=== PATIENT | male | born 1990 | race Caucasian/White ===

== ENCOUNTER 2023-03-17 06:33 | Emergency (ER) | payer SELFPAY ==
[2023-03-17] VITALS (19 sets, daily range): BP systolic 140–180; BP diastolic 97–112; PULSE 58–80; RESP 12–19; TEMP 36.7; O2SAT 95–99; BMI 26.1
--- NOTE | 2023-03-17 06:48 | XR_ITS ---
[address] [address] Patient Name: NANCY HAYNES MRN: [id number] date: 1990 Sex: M Assigned Patient Location: ER Current Patient Location: ED.MAIN Accession/Order Number: [id number] Exam Date: 03/17/2023 06:50 Report Date: 03/17/2023 09:23 At the request of: PATTI ESCALANTE Procedure: XR chest 1V SINGLE VIEW CHEST X-RAY, 03/17/2023. HISTORY: Chest pain. COMPARISON: None. FINDINGS: Single view of the chest was obtained. Heart size and mediastinal contours normal. No pleural effusion. No airspace consolidation. No pulmonary edema. No pneumothorax. XR/XR chest 1V IMPRESSION: Lungs are clear. No acute findings. Electronically authenticated by: RAEANN MCGILL Date: 03/17/2023 09:23
--- NOTE | 2023-03-17 06:48 | ECG_ITS ---
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
[2023-03-17] MEDS: ASPIRIN 325 MG TABLET PO (07:00)
[2023-03-17] MEDS: NITROGLYCERIN 0.4 MG TAB.SUBL PO (07:00)
--- NOTE | 2023-03-17 07:28 | ED_ITS ---
HPI - Chest Pain General Chief Complaint: Chest Pain Stated Complaint: chest pain Time Seen by Provider: 03/17/23 06:48 Source: patient Mode of arrival: walk-in Limitations: no limitations History of Present Illness HPI narrative: The patient have no known past medical history except for hypertension, presenting to us with an episode of chest pain left-sided associated with tachycardia and left-sided jaw pain that woke him up at 3 AM from sleep, by the time the patient got to the ER the patient had no more chest pain but he still have jaw pain he mentioned that he had no nausea no vomiting with the symptoms , some dizziness as he has to take his time to be able to get up He mentioned that he is active usually and use stairs multiple days during the week and no difficulty breathing or chest pain at any time with any used The patient mentioned that the chest pain with pressure-like with no radiation except for the jaw on the left side. No previous medical history of similar problem and no known family history of coronary artery disease The patient also had a history of smoking cigarettes less than 1 pack/day Related Data Home Medications Medication Instructions Recorded Confirmed lisinopril 20 1 tab PO DAILY 03/17/23 03/17/23 mg-hydrochlorothiazide 12.5 mg tablet Allergies Allergy/AdvReac Type Severity Reaction Status Date / Time No Known Drug Allergies Allergy Verified 03/17/23 06:40 Review of Systems ROS Status of ROS 10 or more systems reviewed and unremarkable except as noted in history and below [facility] Social History Smoking status: Current every day smoker Exam Narrative Exam Narrative: Nurses notes and vital signs reviewed and patient is not hypoxic. General: Well-appearing and in no apparent distress. Skin: Warm, dry, no pallor noted. No rash. Head: Normocephalic, atraumatic. Neck: Supple, non-tender. Eye: Pupils are equal, round and EOMI. No scleral icterus. Ears, Nose, Mouth, and Throat: TM are clear, no nasal mucosal hypertrophy. Oral mucosa is moist, no posterior oropharynx erythema, uvula is mid-line Cardiovascular: Regular Rate and Rhythm without murmur, gallop or rub. The patient did mention that he have some tenderness on the left side of his jaw Respiratory: No accessory muscle use or respiratory distress. Lungs are clear to auscultation, no wheezing, rales or rhonchi Chest Wall: no tenderness Back: No midline thoracic or lumbar vertebral tenderness. No CVA tenderness Musculoskeletal: normal ROM, no calf or popliteal tenderness, no lower extremity edema/swelling GI: Abdomen is soft, non-distended. Normal bowel sounds. No masses appreciated. No tenderness to palpation. No rebound, guarding, or rigidity noted. Neurological: A&O x4. No cranial nerve dysfunction observed. No truncal ataxia. Moves all extremities. Sensation intact. Psychiatric: Cooperative and interactive. Normal mood and affect. Constitutional Vital Signs, click to edit/add: Last Vital Signs Temp 98.0 F 03/17/23 06:35 Pulse 58 L 03/17/23 09:07 Resp 16 03/17/23 09:07 BP 150/100 H 03/17/23 09:07 Pulse Ox 99 03/17/23 09:07 O2 Del Method Room Air 03/17/23 09:07 Course Vital Signs Vital signs: Vital Signs Temperature 98.0 F 03/17/23 06:35 Pulse Rate 68 03/17/23 06:35 Respiratory Rate 18 03/17/23 06:35 Blood Pressure 170/112 H 03/17/23 06:35 Pulse Oximetry 98 03/17/23 06:35 Oxygen Delivery Method Room Air 03/17/23 06:35 Temperature 98.0 F 03/17/23 06:35 Pulse Rate 58 L 03/17/23 09:07 Respiratory Rate 16 03/17/23 09:07 Blood Pressure 150/100 H 03/17/23 09:07 Pulse Oximetry 99 03/17/23 09:07 Oxygen Delivery Method Room Air 03/17/23 09:07 MDM - Chest Pain MDM Narrative Medical decision making narrative: The patient EKG showed sinus rhythm from presentation at heart rate of [address] elevation or depression it was repeated after he had the nitro and again showing the same result 61 sinus rhythm with no ST elevation or depression The patient is a low risk patient with a only risk factor is smoking cigarette, his presentation is atypical he already had no chest pain upon presentation he mentioned that his jaw pain disappeared after the nitro and he did have some headache and he was provided with Toradol He had no chest pain at any time when he was in the ER The patient CBC chemistry as well as troponin repeated twice showed no acute significant pathology The patient was instructed about the importance of managing hypertension and make sure that he takes his medication he also referred to cardiology as outpatient for stress test due to his presentation The patient was instructed to come back in case of any symptoms or concerns right now with the patient risk factors presentation to Atypical reason for pain The patient is to follow up with primary care physician in next 2-3 days or to return to the emergency department should any of the signs or symptoms worsen or new symptoms develop. The patient agrees with the following Diagnosis and Treatment plan and the patient will be discharged home. Lab Data Labs: Lab Results 03/17/23 03/17/23 Range/Units 07:17 09:05 WBC 6.5 (4.0-11.0) 10^3/uL RBC 5.44 (4.70-6.10) 10^6/uL Hgb 16.4 (14.0-18.0) g/dL Hct 47.9 (42.0-54.0) % MCV 88.1 (80.0-94.0) fL MCH 30.1 (25.9-34.0) pg MCHC 34.2 (29.9-35.2) g/dL RDW 11.7 (11.0-15.0) % Plt Count 217 (150-450) 10^3/uL MPV 10.5 (9.5-13.5) fL Neut % (Auto) 62.5 (43.0-75.0) % Lymph % (Auto) 26.9 (20.5-60.0) % [place] % (Auto) 6.8 (1.7-12.0) % Eos % (Auto) 2.5 (0.9-7.0) % Baso % (Auto) 0.8 (0.2-2.0) % Neut # (Auto) 4.0 (1.4-6.5) 10^3/uL Lymph # (Auto) 1.7 (1.2-3.8) 10^3/uL [place] # (Auto) 0.4 (0.3-0.8) 10^3/uL Eos # (Auto) 0.2 (0.0-0.7) 10^3/uL Baso # (Auto) 0.1 (0.0-0.1) 10^3/uL Abs Immat Gran (auto) 0.03 (0.00-0.03) 10^3/uL Imm/Tot Granulo (auto) 0.5 (0.0-0.5) % PT 10.3 (9.0-11.6) sec INR 0.97 APTT 28.2 (22.3-36.2) sec Sodium 139 (136-145) mmol/L Potassium 3.7 (3.5-5.1) mmol/L Chloride 103 (98-107) mmol/L Carbon Dioxide 26.2 (21.0-32.0) mmol/L Anion Gap 13.5 BUN 15.0 (7.0-18.0) mg/dL Creatinine 0.86 (0.70-1.30) mg/dL Est GFR ( Amer) >60 (>=60) Est GFR (Non-Af Amer) >60 (>=60) BUN/Creatinine Ratio 17.4 Glucose 118 H (74-106) mg/dL Calcium 9.1 (8.5-10.1) mg/dL Total Bilirubin 1.0 (0.2-1.0) mg/dL AST 19 (15-37) U/L ALT 38 (16-63) U/L Alkaline Phosphatase 62 (46-116) U/L Troponin I High Sens 4.1 4.4 (4.0-76.1) pg/mL Total Protein 7.2 (6.4-8.2) g/dL Albumin 4.0 (3.4-5.0) g/dL Globulin 3.2 g/dL Albumin/Globulin Ratio 1.3 Urine Opiates Screen Negative (NEGATIVE) Ur Buprenorphine Scrn Negative (NEGATIVE) Ur Oxycodone Screen Negative (NEGATIVE) Urine Methadone Screen Negative (NEGATIVE) Ur Propoxyphene Screen Negative (NEGATIVE) Ur Barbiturates Screen Negative (NEGATIVE) U Tricyclic Antidepress Negative (NEGATIVE) Ur Phencyclidine Scrn Negative (NEGATIVE) Ur Amphetamines Screen Negative (NEGATIVE) U Methamphetamines Scrn Negative (NEGATIVE) U Benzodiazepines Scrn Negative (NEGATIVE) Urine Cocaine Screen Negative (NEGATIVE) U Cannabinoids Screen Positive A (NEGATIVE) Discharge Plan Discharge Chief Complaint: Chest Pain Clinical Impression: Atypical chest pain, Jaw pain Patient Disposition: Home, Self-Care Time of Disposition Decision: 10:00 Prescriptions / Home Meds: No Action lisinopril-hydrochlorothiazide 20-12.5 mg tablet 1 tab PO DAILY Instructions: Chest Pain (ED) Stand Alone Forms: Portal Instructions Referrals: Physician,Non-Staff, [Primary Care Provider] - 1 week Ky Billingsley MD [Physician] - 1 week
--- NOTE | 2023-03-17 07:30 | ECG_ITS ---
The [facility] Test Date: 2023-03-17 Pat Name: NANCY HAYNES Department: Room: - Gender: Male Hr Manager: : 1990 Requested By: [id number] Order Number: [id number] Reading MD: ANGEL SMITH Measurements Intervals [place] Rate: 61 P: 34 [place]: 176 QRS: 110 QRSD: 92 T: 71 QT: 424 QTc: 426 Interpretive Statements 1100 Sinus rhythm [address] segment limited to III w/ inverted T wave AVL, V1-2, which are nonspecific but myocardial ischemia can't be excluded 9120 atypical ECG Compared to ECG 03/17/2023 06:38:23 Sinus arrhythmia no longer present Electronically Signed On 03-18-2023 7:05:43 EDT by ANGEL SMITH
[2023-03-17 07:31] LABS: Basophils Absolute Auto 0.1 10^3/uL (0.0-0.1); Basophils Percent Auto 0.8 % (0.2-2.0); Eosinophils Absolute Auto 0.2 10^3/uL (0.0-0.7); Eosinophils Percent Auto 2.5 % (0.9-7.0); Hematocrit 47.9 % (42.0-54.0); Hemoglobin 16.4 g/dL (14.0-18.0); Immature Granulocytes Abs Auto 0.03 10^3/uL (0.00-0.03); Immature Granulocytes Pct Auto 0.5 % (0.0-0.5); Lymphocytes Absolute Auto 1.7 10^3/uL (1.2-3.8); Lymphocytes Percent Auto 26.9 % (20.5-60.0); Mean Corpuscular HGB Conc 34.2 g/dL (29.9-35.2); Mean Corpuscular Hemoglobin 30.1 pg (25.9-34.0); Mean Corpuscular Volume 88.1 fL (80.0-94.0); Mean Platelet Volume 10.5 fL (9.5-13.5); Monocytes Absolute Auto 0.4 10^3/uL (0.3-0.8); Monocytes Percent Auto 6.8 % (1.7-12.0); Neutrophils Percent Auto 62.5 % (43.0-75.0); Platelet Count 217 10^3/uL (150-450); Red Blood Count 5.44 10^6/uL (4.70-6.10); Red Cell Distribution Width 11.7 % (11.0-15.0); White Blood Count 6.5 10^3/uL (4.0-11.0)
[2023-03-17] MEDS: KETOROLAC TROMETHAMINE 30 MG/ML VIAL 15 MG IVP (07:35)
[2023-03-17 07:43] LABS: Alanine Aminotransferase 38 U/L (16-63); Albumin Globulin Ratio 1.3; Alkaline Phosphatase 62 U/L (46-116); Anion Gap 13.5; Aspartate Amino Transferase 19 U/L (15-37); BUN Creatinine Ratio 17.4; Calcium 9.1 mg/dL (8.5-10.1); Carbon Dioxide 26.2 mmol/L (21.0-32.0); Chloride 103 mmol/L (98-107); Estimated GFR (African America >60 (>=60); Estimated GFR (Non-African Ame >60 (>=60); Globulin 3.2 g/dL; Glucose 118 mg/dL (74-106); INR 0.97; Partial Thromboplastin Time 28.2 sec (22.3-36.2); Potassium 3.7 mmol/L (3.5-5.1); Prothrombin Time 10.3 sec (9.0-11.6); Sodium 139 mmol/L (136-145); Total Protein 7.2 g/dL (6.4-8.2); Troponin I High Sensitivity 4.1 pg/mL (4.0-76.1)
[2023-03-17 09:29] LABS: Amphetamine Screen Urine NEGATIVE (NEGATIVE); Barbiturates Screen Urine NEGATIVE (NEGATIVE); Benzodiazepines Screen Urine NEGATIVE (NEGATIVE); Buprenorphine Screen Urine NEGATIVE (NEGATIVE); Cannabinoid Screen Urine POSITIVE (NEGATIVE); Cocaine Screen Urine NEGATIVE (NEGATIVE); Methadone Screen Urine NEGATIVE (NEGATIVE); Methamphetamines Screen Urine NEGATIVE (NEGATIVE); Opiate Screen Urine NEGATIVE (NEGATIVE); Oxycodone Screen Urine NEGATIVE (NEGATIVE); Phencyclidine Screen Urine NEGATIVE (NEGATIVE); Tricyclic Antidepressant Urine NEGATIVE (NEGATIVE)
[2023-03-17 09:46] LABS: Troponin I High Sensitivity 4.4 pg/mL (4.0-76.1)
== END 2023-03-17 10:10 | disposition home or self-care (01) ==
PROVIDERS: Emergency Medicine; Emergency Provider Emergency Medicine
DX: R07.89 Other chest pain (principal); R68.84 Jaw pain; I10 Essential (primary) hypertension; F17.210 Nicotine dependence, cigarettes, uncomplicated
CPT/HCPCS: 36415; 71045; 80053; 80307; 84484; 85025; 85610; 85730; 93005; 96374; 99285

== ENCOUNTER 2023-10-06 22:54 | Emergency (ER) | payer SELFPAY ==
[2023-10-06] VITALS (8 sets, daily range): BP systolic 191–220; BP diastolic 112–134; PULSE 80–92; RESP 17–23; TEMP 36.6; O2SAT 99; BMI 26.5
--- NOTE | 2023-10-06 23:10 | ECG_ITS ---
The 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
--- NOTE | 2023-10-06 23:20 | ED_ITS ---
HPI - Abdominal Pain General Chief Complaint: Abdominal Pain Stated Complaint: Abdominal Pain Time Seen by Provider: 10/06/23 23:03 Source: patient Mode of arrival: walk-in Limitations: no limitations History of Present Illness HPI narrative: This 32-year-old male with a history of hypertension who is on lisinopril presents for evaluation of one day of nausea, vomiting and right lower quadrant abdominal pain. The patient states that earlier today he ate some pizza and he thought that the pizza made him sick because he became nauseated and had several episodes of vomiting since that time. He has since developed right lower quadrant abdominal pain. There is no right upper quadrant eft upper quadrant or left lower quadrant abdominal pain. He has not had any diarrhea. He states that he had severe nausea and increased pain while driving to the emergency department. He has not documented a fever but has had chills and felt flushed throughout the day today. He has never had any abdominal surgery. He states he did not take his blood pressure medication earlier today because he was feeling too sick. MD elicited complaint: Reports abdominal pain Related Data Home Medications ?Medication ?Instructions ?Recorded ?Confirmed lisinopril 20 1 tab PO DAILY 03/17/23 03/17/23 mg-hydrochlorothiazide 12.5 mg tablet Allergies Allergy/AdvReac Type Severity Reaction Status Date / Time No Known Drug Allergies Allergy Verified 03/17/23 06:40 Review of Systems ROS Status of ROS 10 or more systems reviewed and unremark able except as noted in history and below [facility] Social History Smoking status: Current every day smoker Exam Narrative Exam Narrative: Nurses note and vital signs reviewed and patient is not hypoxic. Blood presssure is markedly elevated at 220/112 General: Nontoxic but uncomfortable appearing adult male, no respiratory distress, no active vomiting Skin: Warm, dry, no pallor noted. There is no rash noted. Head: Normocephalic, atraumatic Eye: Normal conjunctiva, no drainage, EOMI. PERRL. No scleral icterus. Ears, Nose, Mouth, and Throat: oral mucosa is moist. Cardiovascular: Regular Rate and Rhythm S1S2, pulses are brisk and equal bilaterally Respiratory: Patient is in no distress, no accessory muscle use, lungs are clear to auscultation, no wheezing, rales or rhonchi Back: non-tender, no CVA tenderness bilaterally to percussion. GI: Normal bowel sounds, soft with RLQ tenderness and rebound, negative Rovsing sign, negative heel tap and obturator sign Musculoskeletal: The patient has no evidence of calf tenderness, no pitting edema, symmetrical pulses noted bilaterally Neurological: A&O x4, normal speech Psychiatric: Cooperative, anxious Constitutional Vital Signs, click to edit/add: Last Vital Signs Temp 97.8 F 10/06/23 22:59 Pulse 75 10/07/23 01:43 Resp 18 10/07/23 01:43 BP 147/104 H 10/07/23 02:25 Pulse Ox 99 10/06/23 22:59 Course Vital Signs Vital signs: Vital Signs Temperature 97.8 F 10/06/23 22:59 Pulse Rate 81 10/06/23 22:59 Respiratory Rate 18 10/06/23 22:59 Blood Pressure 220/112 H 10/06/23 22:59 Pulse Oximetry 99 10/06/23 22:59 Temperature 97.8 F 10/06/23 22:59 Pulse Rate 75 10/07/23 01:43 Respiratory Rate 18 10/07/23 01:43 Blood Pressure 147/104 H 10/07/23 02:25 Pulse Oximetry 99 10/06/23 22:59 MDM - Abdominal Pain MDM Narrative Medical decision making narrative: 32-year-old male with no significant medical history presents for evaluation of one day of nausea, vomiting and right lower quadrant abdominal pain. The symptoms started after having pizza earlier in the day. He also had some chicken noodle soup. He was unable to take his blood pressure medication due to the nausea and vomiting earlier today. Arrival he was noted to have a markedly elevated blood pressure. He was nauseat ed and stated that came more nauseated on the way to the hospital in his abdomen hurt worse after getting here. He was tender in the right lower quadrant with a negative Rovsing sign, negative obturator sign. An IV was placed and he was medicated with IV fluids, 1 mg of Dilaudid and 4 mg of IV Zofran. This initially helped his pain. His blood pressure came down slightly with this medication but he was then medicated with a dose of IV labetalol. he typically takes Lisinopril during the day. Routine labs are ordered and are reviewed. He has an elevated white count of 14.6. Electrolytes are normal with the exception of a mildly low potassium at 3.0.. Lactic acid is minimally elevated at 2.2. Lipase is normal and liver function tests are normal. CT scan of the abdomen and pelvis which is included in the body of this report was negative for acute findings including acute appendicitis. He had mild return of his pain and was remedicated with a dose of Bentyl and Toradol. He is feeling much better, more talkative and appears comfortable. I discussed the results of the labs and CT with him and although at this time his CT scan is negative for acute appendicitis he was encouraged to return to the emergency department for ongoing or worsening symptoms, anorexia, fevers chills or any concerns. I did also explain to him that he may end up with diarrhea as this may be about of acute gastroenteritis with abdominal cramping causing his pain. He will be discharged home with an Rx for zofran and bentyl Medical Records Medical records narrative: The [address] [address] [address] Scan Report Signed Patient: NANCY HAYNES MR#: [id number] : 1990 Acct:[id number] Age/Sex: 32 / M ADM Date: 10/06/23 Loc: ER Attending Dr: Ordering Physician: Paty Fuentes Date of Service: 10/06/23 Procedure(s): CT abdomen pelvis w con Accession Number(s): [id number] cc: Physician,Non-Staff M.D.~ The [address] [address] Patient Name: NANCY HAYNES MRN: [facility]:[id number] date: 1990 Sex: M Assigned Patient Location: ER Current Patient Location: ER Accession/Order Number: [id number] Exam Date: 10/06/2023 23:59 Report Date: 10/07/2023 01:00 At the request of: PATY FUENTES Procedure: CT abdomen pelvis w con EXAM: CT abdomen pelvis w con HISTORY: LLQ abd pain lower quadrant abdominal pain COMPARISON: None. TECHNIQUE: IV contrast-enhanced CT imaging of the chest, abdomen, and pelvis. This CT exam was performed using one or more of the following dose reduction techniques: Automated exposure control, adjustment of the mA and/or KV according to patient size, or use of iterative reconstruction technique. Unless otherwise stated, incidental findings do not require dedicated follow-up imaging. FINDINGS: There is mild bibasilar atelectasis. The heart size is normal. The liver, spleen, pancreas, adrenal glands, and kidneys all enhance normally. There is a right upper pole renal cyst. The gallbladder is distended. There is no biliary duct dilatation. The bowel is unobstructed. The appendix is normal. The bladder is distended and within normal limits. There is no free fluid or free air within the abdomen or pelvis. The bones are intact without acute abnormality. CT/CT abdomen pelvis w con IMPRESSION: No acute abnormality of the abdomen or pelvis. Electronically authenticated by: NORAH LAWRENCE Date: 10/07/2023 01:00 Lab Data Labs: Lab Results 10/06/23 10/06/23 10/07/23 Range/Units 23:05 23:10 02:15 WBC 14.6 H (4.0-11.0) 10^3/uL RBC 5.62 (4.70-6.10) 10^6/uL Hgb 17.0 (14.0-18.0) g/dL Hct 50.2 (42.0-54.0) % MCV 89.3 (80.0-94.0) fL MCH 30.2 (25.9-34.0) pg MCHC 33.9 (29.9-35.2) g/dL RDW 11.5 (11.0-15.0) % Plt Count 242 (150-450) 10^3/uL MPV 10.7 (9.5-13.5) fL Neut % (Auto) 68.9 (43.0-75.0) % Lymph % (Auto) 21.2 (20.5-60.0) % [place] % (Auto) 7.9 (1.7-12.0) % Eos % (Auto) 1.0 (0.9-7.0) % Baso % (Auto) 0.7 (0.2-2.0) % Neut # (Auto) 10.0 H (1.4-6.5) 10^3/uL Lymph # (Auto) 3.1 (1.2-3.8) 10^3/uL [place] # (Auto) 1.2 H (0.3-0.8) 10^3/uL Eos # (Auto) 0.2 (0.0-0.7) 10^3/uL Baso # (Auto) 0.1 (0.0-0.1) 10^3/uL Abs Immat Gran (auto) 0.05 H (0.00-0.03) 10^3/uL Imm/Tot Granulo (auto) 0.3 (0.0-0.5) % Sodium 136 (136-145) mmol/L Potassium 3.0 L (3.5-5.1) mmol/L Chloride 98 (98-107) mmol/L Carbon Dioxide 27.9 (21.0-32.0) mmol/L Anion Gap 13.1 BUN 12.0 (7.0-18.0) mg/dL Creatinine 1.16 (0.70-1.30) mg/dL Est GFR ( Amer) >60 (>=60) Est GFR (Non-Af Amer) >60 (>=60) BUN/Creatinine Ratio 10.3 Glucose 117 H (74-106) mg/dL Lactate 2.2 H* 1.8 (0.4-2.0) mmol/L Calcium 9.6 (8.5-10.1) mg/dL Total Bilirubin 1.0 (0.2-1.0) mg/dL AST 19 (15-37) U/L ALT 38 (16-63) U/L Alkaline Phosphatase 71 (46-116) U/L Total Protein 7.7 (6.4-8.2) g/dL Albumin 4.4 (3.4-5.0) g/dL Globulin 3.3 g/dL Albumin/Globulin Ratio 1.3 Lipase 35.0 (16.0-77.0) U/L Urine Color Lt. yellow (YELLOW) Urine Clarity Clear (CLEAR) Urine pH 7.5 (5.0-9.0) Ur Specific [place] 1.015 (1.005-1.025) Urine Protein Negative (NEG/TRACE) mg/dL Urine Glucose (UA) Negative (NEGATIVE) mg/dL Urine Ketones Negative (NEGATIVE) mg/dL Urine Occult Blood Negative (NEGATIVE) Urine Nitrite Negative (NEGATIVE) Urine Bilirubin Negative (NEGATIVE) Urine Urobilinogen 0.2 (0.2-1.0) EU/dL Ur Leukocyte Esterase Negative (NEGATIVE) Urine RBC None seen (0-2) #/HPF Urine WBC None seen (NONE SEEN) #/HPF Ur Squamous Epith Cells None seen (NONE/RARE) #/LPF Urine Crystals None seen (None Seen) #/HPF Amorphous Sediment Many Urine Bacteria None seen (NONE SEEN) #/HPF Urine Casts None seen (NONE SEEN) #/LPF Urine Mucus None seen (NONE SEEN) Ur Culture Indicated? No Discharge Plan Discharge Stand Alone Forms: Portal Instructions Chief Complaint: Abdominal Pain Clinical Impression: Abdominal pain, RLQ, Elevated blood pressure reading, Nausea & vomiting Patient Disposition: Home, Self-Care Time of Disposition Decision: 02:04 Condition: Good Prescriptions / Home Meds: No Action lisinopril-hydrochlorothiazide 20-12.5 mg tablet 1 tab PO DAILY Print Language: Albanian Instructions: Acute Nausea and Vomiting (DC), Acute Abdominal Pain (ED), Hypertension (ED) Additional Instructions: Return to the emergency department for ongoing or worsening right lower quadrant abdominal pain, anorexia, fever or any concerns. Drink a clear liquid diet, use Zofran for nausea vomiting and Bentyl for abdominal cramps. You may end up having some diarrhea over the course of the next several days. Referrals: Physician,Non-Staff, MD [Primary Care Provider] - 1 week Discharge Date/Time: 10/07/23 02:27
[2023-10-06 23:27] LABS: Bilirubin Urine NEGATIVE (NEGATIVE); Blood Urine NEGATIVE (NEGATIVE); Clarity Urine CLEAR (CLEAR); Color Urine LT. YELLOW (YELLOW); Glucose Urine UA NEGATIVE (NEGATIVE); Ketones Urine NEGATIVE (NEGATIVE); Leukocyte Esterase Urine NEGATIVE (NEGATIVE); Nitrite Urine NEGATIVE (NEGATIVE); Protein Urine NEGATIVE (NEG/TRACE); Specific Gravity Urine 1.015 (1.005-1.025); Urobilinogen Urine 0.2 EU/dL (0.2-1.0); pH Urine 7.5 (5.0-9.0)
[2023-10-06 23:28] LABS: Basophils Absolute Auto 0.1 10^3/uL (0.0-0.1); Basophils Percent Auto 0.7 % (0.2-2.0); Eosinophils Absolute Auto 0.2 10^3/uL (0.0-0.7); Hematocrit 50.2 % (42.0-54.0); Immature Granulocytes Abs Auto 0.05 10^3/uL (0.00-0.03); Immature Granulocytes Pct Auto 0.3 % (0.0-0.5); Lymphocytes Absolute Auto 3.1 10^3/uL (1.2-3.8); Lymphocytes Percent Auto 21.2 % (20.5-60.0); Mean Corpuscular HGB Conc 33.9 g/dL (29.9-35.2); Mean Corpuscular Hemoglobin 30.2 pg (25.9-34.0); Mean Corpuscular Volume 89.3 fL (80.0-94.0); Mean Platelet Volume 10.7 fL (9.5-13.5); Monocytes Absolute Auto 1.2 10^3/uL (0.3-0.8); Monocytes Percent Auto 7.9 % (1.7-12.0); Neutrophils Percent Auto 68.9 % (43.0-75.0); Platelet Count 242 10^3/uL (150-450); Red Blood Count 5.62 10^6/uL (4.70-6.10); Red Cell Distribution Width 11.5 % (11.0-15.0); White Blood Count 14.6 10^3/uL (4.0-11.0)
[2023-10-06 23:33] LABS: Bacteria Urine NONE SEEN #/HPF (NONE SEEN); Mucus Urine NONE SEEN (NONE SEEN); RBC Urine NONE SEEN #/HPF (0-2); WBC Urine NONE SEEN #/HPF (NONE SEEN)
[2023-10-06 23:34] LABS: Amorphous Sediment Urine MANY; Cast Seen? NONE SEEN #/LPF (NONE SEEN); Crystals Seen? None Seen #/HPF (None Seen); Squamous Epithelial Cell Urine NONE SEEN #/LPF (NONE/RARE); Urine Culture Indicated NO
[2023-10-06] MEDS: ONDANSETRON PF 4 MG/2 ML VIAL IV (23:36)
[2023-10-06] MEDS: 0.9 % SODIUM CHLORIDE 1,000 ML 1000 ML IV (23:36)
[2023-10-06] MEDS: HYDROMORPHONE HCL 1 MG/ML CARTRIDGE IV (23:36)
[2023-10-06 23:49] LABS: Lactate/Lactic Acid 2.2 mmol/L (0.4-2.0)
[2023-10-06 23:57] LABS: Alanine Aminotransferase 38 U/L (16-63); Albumin Globulin Ratio 1.3; Albumin Level 4.4 g/dL (3.4-5.0); Alkaline Phosphatase 71 U/L (46-116); Anion Gap 13.1; Aspartate Amino Transferase 19 U/L (15-37); BUN Creatinine Ratio 10.3; Calcium 9.6 mg/dL (8.5-10.1); Carbon Dioxide 27.9 mmol/L (21.0-32.0); Chloride 98 mmol/L (98-107); Estimated GFR (African America >60 (>=60); Estimated GFR (Non-African Ame >60 (>=60); Globulin 3.3 g/dL; Glucose 117 mg/dL (74-106); Sodium 136 mmol/L (136-145); Total Protein 7.7 g/dL (6.4-8.2)
--- NOTE | 2023-10-06 23:58 | CT_ITS ---
The [address] [address] Patient Name: NANCY HAYNES MRN: [id number] date: 1990 Sex: M Assigned Patient Location: ER Current Patient Location: Accession/Order Number: [id number] Exam Date: 10/06/2023 23:59 Report Date: 10/07/2023 01:00 At the request of: PATY MARKER Procedure: CT abdomen pelvis w con EXAM: CT abdomen pelvis w con HISTORY: LLQ abd pain lower quadrant abdominal pain COMPARISON: None. TECHNIQUE: IV contrast-enhanced CT imaging of the chest, abdomen, and pelvis. This CT exam was performed using one or more of the following dose reduction techniques: Automated exposure control, adjustment of the mA and/or KV according to patient size, or use of iterative reconstruction technique. Unless otherwise stated, incidental findings do not require dedicated follow-up imaging. FINDINGS: There is mild bibasilar atelectasis. The heart size is normal. The liver, spleen, pancreas, adrenal glands, and kidneys all enhance normally. There is a right upper pole renal cyst. The gallbladder is distended. There is no biliary duct dilatation. The bowel is unobstructed. The appendix is normal. The bladder is distended and within normal limits. There is no free fluid or free air within the abdomen or pelvis. The bones are intact without acute abnormality. CT/CT abdomen pelvis w con IMPRESSION: No acute abnormality of the abdomen or pelvis. Electronically authenticated by: NORAH LAWRENCE Date: 10/07/2023 01:00
[2023-10-07] VITALS (13 sets, daily range): BP systolic 147–190; BP diastolic 87–104; PULSE 75–90; RESP 15–29
[2023-10-07] MEDS: LABETALOL HCL 20 MG/4 ML SYRINGE 10 MG IVP (00:15)
[2023-10-07] MEDS: 0.9 % SODIUM CHLORIDE 1,000 ML 1000 ML IV (00:52)
[2023-10-07] MEDS: KETOROLAC TROMETHAMINE 30 MG/ML VIAL IVP (01:15)
[2023-10-07] MEDS: DICYCLOMINE HCL 20 MG/2 ML VIAL IM (01:16)
[2023-10-07] MEDS: POTASSIUM CHLORIDE 10 MEQ ER TABLET 20 MEQ PO (02:20)
[2023-10-07 02:57] LABS: Lactate/Lactic Acid 1.8 mmol/L (0.4-2.0)
== END 2023-10-07 02:27 | disposition home or self-care (01) ==
PROVIDERS: Emergency Provider Emergency Medicine
DX: R10.31 Right lower quadrant pain (principal); I10 Essential (primary) hypertension; R11.2 Nausea with vomiting, unspecified; F17.200 Nicotine dependence, unspecified, uncomplicated
CPT/HCPCS: 36415; 74177; 80053; 81001; 83605; 83690; 85025; 93005; 96361; 96372; 96374; 96375; 99285; J0500; J1170; Q9967

== ENCOUNTER 2024-06-07 19:14 | Emergency (ER) | payer SELFPAY ==
[2024-06-07 19:21] VITALS: BP 180/115; PULSE 99; TEMP 36.6; O2SAT 99; BMI 27.2
--- NOTE | 2024-06-07 19:32 | ED.SKABFB1 ---
HPI - Skin/Abscess/Foreign Bdy General Chief complaint: Skin/Abscess/Foreign Body Stated complaint: spider bite Time Seen by Provider: 06/07/24 19:23 Source: patient Mode of arrival: walk-in Limitations: no limitations History of Present Illness HPI narrative: 33 year old male presents to the ED for a raised, erythematous area to his right mid back. He noticed the area a few days ago when it started to drain. Reports discomfort to the area with palpation. Denies fever, chills, injury. His BP was elevated upon arrival today. He took his Lisinopril around 1700. Related Data Home Medications ?Medication ?Instructions ?Recorded ?Confirmed lisinopril 20 1 tab PO DAILY 03/17/23 06/07/24 mg-hydrochlorothiazide 12.5 mg tablet Previous Rx's ?Medication ?Instructions ?Recorded cephalexin 500 mg capsule 500 mg PO Q6H 10 days #40 caps 06/07/24 sulfamethoxazole 800 1 tab PO BID 10 days #20 tabs 06/07/24 mg-trimethoprim 160 mg tablet (Bactrim DS) Allergies Allergy/AdvReac Type Severity Reaction Status Date / Time No Known Drug Allergies Allergy Verified 03/17/23 06:40 Review of Systems ROS Constitutional Denies: fever or chills Cardiovascular Denies: chest pain Respiratory Denies: shortness of breath Gastrointestinal Denies: abdominal pain Integumentary/Breast Reports: redness and new lesion; Denies: rash PFSH PFSH Social History Smoking status: Current every day smoker Little interest or pleasure in doing things: not at all Feeling down, depressed, or hopeless: not at all Exam Constitutional Vital Signs, click to edit/add: Last Vital Signs Temp 98 F 06/07/24 19:21 Pulse 99 H 06/07/24 19:21 Resp 18 06/07/24 19:21 BP 180/115 H 06/07/24 19:21 Pulse Ox 99 06/07/24 19:21 O2 Del Method Room Air 06/07/24 19:21 Common normals: no apparent distress and oriented x3 General appearance: cooperative Eye Common normals: conjunctivae normal and no scleral icterus Neck & C-Spine Common normals: supple Respiratory Common normals: normal respiratory effort Effort & inspection: able to speak in complete sentences and symmetric chest movement Cardio Common normals: regular rate Back & Pelvis Other: Erythema with two central open areas to right mid back. No drainage at this time. Area is tender. Open areas are approx 3 mm and 6 mm in diameter. Neuro Common normals: oriented x3 Sensorium/orientation: awake and alert Speech: speech normal Gait (neuro): normal gait Course Vital Signs Vital signs: Vital Signs Temperature 98 F 06/07/24 19:21 Pulse Rate 99 H 06/07/24 19:21 Respiratory Rate 18 06/07/24 19:21 Blood Pressure 180/115 H 06/07/24 19:21 Pulse Oximetry 99 06/07/24 19:21 Oxygen Delivery Method Room Air 06/07/24 19:21 Temperature 98 F 06/07/24 19:21 Pulse Rate 99 H 06/07/24 19:21 Respiratory Rate 18 06/07/24 19:21 Blood Pressure 180/115 H 06/07/24 19:21 Pulse Oximetry 99 06/07/24 19:21 Oxygen Delivery Method Room Air 06/07/24 19:21 MDM - Skin/Abscess/Foreign Bdy MDM Narrative Medical decision making narrative: I and D is not indicated at this time. The area is draining. Prescriptions were provided for bactrim and keflex. Follow up with pcp for a recheck, further evaluation and treatment. Differential Diagnosis Differential diagnosis: Likely abscess of skin or subcutaneous tissue, cellulitis and insect bites Medical Records Attestation: I reviewed the patient's medical records. Discharge Plan Discharge Chief Complaint: Skin/Abscess/Foreign Body Clinical Impression: Abscess Patient Disposition: Home, Self-Care Time of Disposition Decision: 19:35 Condition: Good Mode of Transportation: Private Vehicle Prescriptions / Home Meds: New sulfamethoxazole-trimethoprim [Bactrim DS] 800-160 mg tablet 1 tab PO BID 10 Days Qty: 20 0RF cephalexin 500 mg capsule 500 mg PO Q6H 10 Days Qty: 40 0RF No Action lisinopril-hydrochlorothiazide 20-12.5 mg tablet 1 tab PO DAILY Print Language: Mongolian Instructions: Abscess (ED) Additional Instructions: Return to the ER for new or worsening symptoms. Referrals: Luis E Gaytan MD [Physician] - 1 week Physician,Non-Staff, [Primary Care Provider] - 1 week Discharge Date/Time: 06/07/24 19:50
== END 2024-06-07 19:50 | disposition home or self-care (01) ==
PROVIDERS: Emergency Provider Emergency Medicine
DX: L02.212 Cutaneous abscess of back [any part, except buttock and flank] (principal); F17.200 Nicotine dependence, unspecified, uncomplicated; I10 Essential (primary) hypertension
CPT/HCPCS: 99283